=== PATIENT | female | born 1985 | race Two or more races ===

== ENCOUNTER 2018-10-16 22:57 | Emergency (ER) | payer SELFPAY ==
[~2018-10-16] VITALS: Ht 175.3 cm; Wt 99.8 kg
--- NOTE | 2018-10-16 23:29 | NUR ---
[facility] WITH C/O CP. CONNECTED TO THE MONITOR, VS OBTAINED. WITH ELEVATED BP. CUPS AT THE BED SIDE AT THIS TIME.
[2018-10-16] MEDS ORDERED: LORAZEPAM 1 MG TABLET ONE (23:45)
[2018-10-17] MEDS ORDERED: LORAZEPAM 1 MG TABLET PO ONE
[2018-10-17] MEDS ORDERED: LISINOPRIL (20MG) 20 MG TABLET PO ONE
--- NOTE | 2018-10-17 | NUR ---
20G PIV WAS STARTED ON LFA . BLOOD WAS DRAWN
[2018-10-17 00:05] LABS: BASOPHILS # (AUTO) 0.1 /CMM (0.0-0.2); BASOPHILS % (AUTO) 1.2 % (0.0-2.0); EOSINOPHILS % (AUTO) 2.5 % (0.0-6.0); HEMATOCRIT 37 % (33-45); HEMOGLOBIN 11.6 g/dL (11.5-14.8); LYMPHOCYTES # (AUTO) 2.1 /CMM (0.8-4.8); LYMPHOCYTES % (AUTO) 29.5 % (20.0-44.0); MEAN CORPUSCULAR HGB CONC 32 g/dl (31.0-36.0); MEAN CORPUSCULAR VOLUME 71 fL (82-100); MONOCYTES # (AUTO) 0.4 /CMM (0.1-1.30); MONOCYTES % (AUTO) 5.9 % (2.0-12.0); NEUTROPHILS # (AUTO) 4.3 /CMM (1.8-8.9); NEUTROPHILS % (AUTO) 60.9 % (43.0-81.0); PLATELET COUNT (AUTO) 352 /CMM (150-450); RED BLOOD CELL COUNT(AUTO) 5.15 MIL/uL (4.0-5.2)
[2018-10-17] MEDS ORDERED: LISINOPRIL (20MG) 20 MG TABLET ONE (00:08)
[2018-10-17 00:14] LABS: CALCIUM, SERUM 8.4 mg/dL (8.5-10.1); CREATININE 0.7 mg/dL (0.6-1.3); POTASSIUM 3.7 mmol/L (3.5-5.1)
[2018-10-17 00:26] LABS: ALBUMIN 3.8 g/dL (3.4-5.0); BILIRUBIN,DIRECT 0.2 mg/dL (0.0-0.2); BILIRUBIN,TOTAL 0.7 mg/dL (0.2-1.0); TOTAL PROTEIN, SERUM 7.5 g/dL (6.4-8.2)
[2018-10-17 00:50] LABS: D-DIMER 0.31 mg/L(FEU (0.17-0.50)
--- NOTE | 2018-10-17 02:17 | NUR ---
Patient is resting comfortably in bed with eyes closed. Easily aroused. VSS. no s/s or c/o pain or discomfort. will cont to monitor ,
--- NOTE | 2018-10-17 02:24 | NUR ---
ATTEMPTE TO GET URINE SAMPLE MLTIPLE TIMES. PT REFUSED
--- NOTE | 2018-10-17 03:20 | NUR ---
PT WAS DISCHARGED UNDER [employer] OBSERVATION IN STABLE CONDITION. D/C PAPERS WERE PROVIDED AND INSTRUCTED WITH UNDERSTANDING. IV LINE D/C'D.
[2018-10-17 03:42] VITALS: BP 137/85
== END 2018-10-17 03:45 | disposition home or self-care (01) ==
LOC: ER 22:59
DX: S80.12XA Contusion of left lower leg, initial encounter (principal); S80.11XA Contusion of right lower leg, initial encounter; T74.21XA Adult sexual abuse, confirmed, initial encounter; R07.89 Other chest pain; I11.0 Hypertensive heart disease with heart failure; I50.9 Heart failure, unspecified; I44.7 Left bundle-branch block, unspecified; Y93.89 Activity, other specified; Y92.89 Other specified places as the place of occurrence of the external cause; Y99.8 Other external cause status
CPT/HCPCS: 36415; 71045-TC; 80048-TC; 80076-TC; 83880; 84484-TC; 84702-TC; 85025-TC; 85378-TC; 85730-TC